=== PATIENT | female | born 1935 | race Caucasian/White ===

== ENCOUNTER 2017-04-30 15:40 | Emergency (ER) | payer OTHER, MEDICAID ==
[2017-04-30 15:48] VITALS: BP 133/59; BMI 25.9
--- NOTE | 2017-04-30 16:46 | DR.GENAD ---
HPI - PCP Primary Care Physician: luisana - Complaint/Symptoms Chief Complaint Doctors Comments: I agree with statement as written. Patient is alert remembers events, denies nausea or vomiting. She denies headache. She admits to loosing sight in left many years ago Chief Complaint:: Patient fell 2 hours ago and hit left side of head. Bruising noted to left side of head and eye. Patient denies losing loc. Patient denies any pain. Family stated patient was disoriented x1 hour after event. Patient is alert and oriented in triage. Patient does c/o of mild shortness of breath - Source History Provided: Patient - Mode of Arrival Mode of Arrival: Ambulatory - Timing Onset of Chief Complaint: 04/30/17 PMH - PMH Past Medical History: Yes Past Medical History: Arthritis, Dyslipidemia, Hypertension Past Medical History Comment: skin ca, blind in left eye Past Surgical History: Yes Surgical History: - Family History History of Family Medical Conditions: Yes Family Medical History: Diabetes Mellitus, Cancer, MS, Coronary Artery Disease, Heart Failure, Sudden Cardiac - Social History Does patient currently use any type of tobacco product: No Have you used tobacco products in the last 12 months: No Type of Tobacco Use: None Does any household member use tobacco: No Alcohol Use: None Do you use any recreational Drugs:: No Lives With: Alone Lives Where: Home - infectious screening In the last 2 months have you had wt loss of >10#?: NO Have you had fever, night sweats or hemotysis?: No Have you traveled outside the country in the last 6 months?: No Isolation: Standard ROS - Review of Systems Eyes: No Symptoms Reported ENTM: No Symptoms Reported Respiratoy: No Symptoms Reported Cardiovascular: No Symptoms Reported Gastrointestinal/Abdominal: No Symptoms Reported Genitourinary: No Symptoms Reported Neurological: No Symptoms Reported Musculoskeletal: No Symptoms Reported Integumentary: Change in Color (left temporal and left rayne-orbital area) Hematologic/Lymphatic: No Symptoms Reported Endocrine: No Symptoms Reported Psychiatric: No Symptoms Reported All Other Systems: Reviewed and Negative PE - Vital Signs Vitals: Temperature 99.2 F Pulse Rate 102 Respiratory Rate 18 Blood Pressure [Right Radial 134/61 Artery] Blood Pressure [Left Arm] 129/61 Blood Pressure [Right Arm] 123/45 Blood Pressure 133/59 O2 Sat by Pulse Oximetry 97 - General General Appearance: Alert, In No Apparent Distress - Head Head Exam: Normal Inspection, Other (slight ecchmyosis left temporal and left rayne-0rbital area) - Eyes Eye exam: Normal Appearance, PERRL, EOMI - ENT ENT Exam: Normal Exam External Ear Exam: Normal External Inspection TM/Canal Exam: Bilateral Normal Nose Exam: Normal Nose Exam Mouth Exam: Normal Inspection Throat Exam: Normal Inspection - Neck Neck Exam: Normal Inspection - Chest Chest Inspection: Normal Inspection - Respiratory Respiratory Exam: Normal Lung Sounds Bilat Respiratory Exam: Bilateral Clear to Auscultation - Cardiovascular Cardiovascular Exam: Regular Rate, Normal Rhythm - Abdominal Exam Abdominal Exam: Normal Inspection, Normal Bowel Sounds Abdominal Tenderness: negative: RUQ, RLQ, LUQ, LLQ, Epigastrium, Suprapubic, Diffuse, Mild, Moderate, Severe, Other - Extremities Extremities Exam: Normal Inspection, Full ROM - Back Back Exam: Normal Inspection - Neurologic Neurological Exam: Alert, Oriented X3, CN II-XII Intact - Psychiatric Psychiatric Exam: Normal Affect - Skin Skin Exam: Warm, Dry, Intact Course - Reevaluation 1st: Unchanged ROR - Labs Reviewed Laboratory: Influenza Type A (PCR) Negative (NEGATIVE) 04/30/17 16:47 Influenza Type B (PCR) Positive (NEGATIVE) A 04/30/17 16:47 - XRAY XRAY Interpreted by: Radiologist (Chest:No radiographic evidence of an acute cardiopulmonary process. CT Facial Bones: There is osteopenia. The mandible is intact as well as CT and loints. The maxilla and zygomatic arches and orbits are intact. The paransal sinuses are clear. There is no nasal fracture demonstrated. The nasal spine is intact. The left globe of the orbit is atrophic and defomed with calcification. There is coarse calcification and a soft tissue density posteriorly in the right maxillary sinus there is mild mucosal thickening. There is mild thickening of the cortex of the lateral wall of the right maxillary sinus. ImpressionP: No evidence for facial fracture. 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
--- NOTE | 2017-04-30 17:48 | CT ---
History: Fall onto floor Study: CT facial bones without contrast. Sagittal and coronal reformations were provided. Findings: There is osteopenia. The mandible is intact as well as CT and joints. The maxilla and zygom atic arches and orbits are intact. The paranasal sinuses are clear. There is no nasal fracture demons trated. The nasal spine is intact. The left globe of the orbit is atrophic and deformed with calcific ation. There is coarse calcification and a soft tissue density posteriorly in the right maxillary sin us there is mild mucosal thickening. There is mild thickening of the cortex of the lateral wall of th e right maxillary sinus. Impression: 1. No evidence for facial fracture 2. 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 Atrophic peripherally calcified left orbital globe Reported By:
--- NOTE | 2017-04-30 17:55 | RAD ---
HISTORY: Cough, shortness of breath Study: AP chest. Comparison: Chest radiograph dated 03/19/2012 Findings: The lungs are clear. No consolidation. There are no pleural effusions. There is a right hilar prominence which appears similar to decreased when compared to previous radiog raph. This is likely vascular in etiology. Cardiac silhouette is normal in size. IMPRESSION: 1. No radiographic evidence of an acute cardiopulmonary process. Reported By:
== END 2017-04-30 18:30 | disposition home or self-care (01) ==
LOC: ER 15:52
DX: S00.93XA Contusion of unspecified part of head, initial encounter (principal); W19.XXXA Unspecified fall, initial encounter; Y92.9 Unspecified place or not applicable
CPT/HCPCS: 70486; 71045; 87502; 99282